=== PATIENT | female | born 1955 | race African-American/Black ===

== ENCOUNTER 2023-10-16 09:00 | Inpatient (IN) | payer OTHER, MEDICAID ==
[~2023-10-16] VITALS: Ht 165.1 cm; Wt 80.4 kg
[2023-10-16 09:59] VITALS: PULSE 92; RESP 16; O2SAT 95
[2023-10-16 11:28] LABS: Basophils # (auto) 0 10 ^3/uL (0-0.2); Basophils % (auto) 0.2 % (0.0-2.0); Eosinophils # (auto) 0 10 ^3/uL (0-0.8); Eosinophils % (auto) 0.3 % (0.0-7.0); Hematocrit 41.8 % (36.0-46.0); Lymphocytes # (auto) 0.7 10 ^3/uL (0.4-5.4); Lymphocytes % (auto) 8.6 % (10.0-50.0); Mean Corpuscular Hemoglobin 33.5 pg (28.0-32.0); Mean Corpuscular Hgb Conc. 33.5 g/dL (32.0-36.0); Monocytes # (auto) 1.3 10 ^3/uL (0-1.3); Monocytes % (auto) 15.3 % (0.0-12.0); Neutrophils # (auto) 6.4 10 ^3/uL (1.6-8.6); Neutrophils % (auto) 75.6 % (37.0-80.0); Nucleated Red Blood Cells % 0.1 %; Red Blood Cells 4.18 10^6/uL (4.0-5.20); Red Cell Distribution Width 13.1 % (11.8-14.3); White Blood Cell 8.5 10^3/uL (4.4-10.8)
[2023-10-16] MEDS: SODIUM CHLORIDE 0.9% 1,000 ML IVB ONE (11:48)
[2023-10-16] MEDS: ONDANSETRON HCL 4 MG/2 ML VIAL IV ONE (11:48)
[2023-10-16] MEDS: MORPHINE SULFATE 4 MG/ML SYR/VIAL IV ONE (11:49)
[2023-10-16 12:00] LABS: Alanine Aminotransferase 10 U/L (7-40); Albumin 3.5 g/dL (3.2-4.8); Alkaline Phosphatase 62 U/L (46-116); Anion Gap 7 (5-15); Aspartate Aminotransferase 21 U/L (13-40); BUN/Creatinine Ratio 19.3 (10.0-20.0); Bilirubin, Total 0.4 mg/dL (0.2-1.0); Blood Urea Nitrogen 35 mg/dL (9-23); Calcium 9.2 mg/dL (8.7-10.4); Carbon Dioxide 27 mmol/L (20-30); Chloride 101 mmol/L (98-107); Glucose 126 mg/dL (74-106); Lipase 47 U/L (12-53); Potassium 3.5 mmol/L (3.5-5.1); Sodium 135 mmol/L (136-145)
[2023-10-16] MEDS ORDERED: NITROGLYCERIN 0.4 MG SL TAB SL PRN (14:15)
[2023-10-16] MEDS ORDERED: DOCUSATE SOD 100 MG CAP PO PRN (14:15)
[2023-10-16] MEDS ORDERED: DEXTROSE (50%) 50ML SYRG IV PRN (14:15)
[2023-10-16] MEDS ORDERED: MORPHINE SULFATE INJ 2 MG/ml SYRG IV PRN (14:15)
[2023-10-16] MEDS: GASTROGRAFIN 120 ML SOL ONE (15:13)
[2023-10-16] MEDS: SODIUM CHLORIDE 0.9% 1,000 ML IV ONE (16:10)
[2023-10-16] MEDS: SODIUM CHLORIDE 0.9% 1,000 ML IV SCH (17:30)
[2023-10-16] MEDS: PIPERACILLIN-TAZOB 3.375GM 100 ML IV ONE (17:30)
[2023-10-16 17:43] LABS: Urine Bacteria None Seen /hpf (None Seen)
[2023-10-16 18:41] LABS: Urine Blood TRACE /uL (Negative); Urine Clarity Turbid (Clear); Urine Color Yellow (Yellow); Urine Protein, UAD TRACE (Negative); Urine Specific Gravity 1.021 (1.001-1.035); Urine Urobilinogen Normal (Negative); Urine WBC 2 /hpf (0 - 5); Urine pH 5.5 (5.0-9.0)
[2023-10-16] MEDS: ACCU-CHEK COMFORT CURVE STRIP VI SCH (19:53)
[2023-10-16] MEDS: ONDANSETRON HCL 4 MG/2 ML VIAL IV PRN (23:55)
[2023-10-16] MEDS: PIPERACILLIN-TAZOB 3.375GM 100 ML IV SCH (23:58)
[2023-10-17] VITALS (9 sets, daily range): BP systolic 110–129; BP diastolic 65–74; PULSE 69–92; RESP 16–18; TEMP 97.2–98.3; O2SAT 91–97
[2023-10-17] MEDS: MORPHINE SULFATE INJ 2 MG/ml SYRG IV PRN (00:06)
[2023-10-17] MEDS ORDERED: METO25TA93 PO (00:31)
[2023-10-17] MEDS ORDERED: GLIP5TAB21 PO (00:31)
[2023-10-17 06:34] LABS: Basophils # (auto) 0 10 ^3/uL (0-0.2); Basophils % (auto) 0.1 % (0.0-2.0); Eosinophils # (auto) 0 10 ^3/uL (0-0.8); Eosinophils % (auto) 0.1 % (0.0-7.0); Lymphocytes # (auto) 0.6 10 ^3/uL (0.4-5.4); Nucleated Red Blood Cells % 0.1 %
[2023-10-17 06:36] LABS: Hematocrit 42.2 % (36.0-46.0); Hemoglobin 14.2 g/dL (12.2-16.2); Lymphocytes % (auto) 7.2 % (10.0-50.0); Mean Corpuscular Hemoglobin 33.1 pg (28.0-32.0); Mean Corpuscular Hgb Conc. 33.5 g/dL (32.0-36.0); Mean Corpuscular Volume 98.7 fL (80.0-100.0); Monocytes # (auto) 1.3 10 ^3/uL (0-1.3); Monocytes % (auto) 16.5 % (0.0-12.0); Neutrophils # (auto) 6.1 10 ^3/uL (1.6-8.6); Neutrophils % (auto) 76.1 % (37.0-80.0); Red Blood Cells 4.28 10^6/uL (4.0-5.20)
[2023-10-17 06:46] LABS: Alkaline Phosphatase 65 U/L (46-116); Anion Gap 8 (5-15); BUN/Creatinine Ratio 24.2 (10.0-20.0); Blood Urea Nitrogen 36 mg/dL (9-23); Calcium 9.4 mg/dL (8.5-10.1); Carbon Dioxide 33 mmol/L (20-30); Chloride 98 mmol/L (98-107); Glucose 134 mg/dL (74-106); Sodium 139 mmol/L (136-145)
[2023-10-17 06:47] LABS: Albumin 3.7 g/dL (3.2-4.8); Aspartate Aminotransferase 18 U/L (13-40); Bilirubin, Total 0.4 mg/dL (0.2-1.0); Total Protein 7.1 g/dL (5.7-8.2)
[2023-10-17 06:49] LABS: Alanine Aminotransferase < 9 U/L (7-40)
[2023-10-17 06:53] LABS: INR 1.06 (0.9-1.15); Partial Thromboplastin Time 26.5 SEC (24.5-34.5); Prothrombin Time 11.2 sec (9.3-11.8)
[2023-10-17] MEDS: PANTOPRAZOLE 40 MG/10 ML VIAL INJ IV SCH (08:51)
[2023-10-17] MEDS: POTASSIUM CHL 20MEQ/100ML 100 ML IV SCH (11:45)
[2023-10-17] MEDS: LORazepam 2MG/ML-1ML VIAL IV ONE (14:30)
[2023-10-17] MEDS ORDERED: DEXTROSE (50%) 50ML SYRG IV PRN (14:30)
[2023-10-17] MEDS: ACCU-CHEK COMFORT CURVE STRIP VI SCH (17:28)
[2023-10-17] MEDS: InsuLIN REG 1unit/0.01ml Soln (100units/ml) SC SCH (17:28)
[2023-10-17] MEDS: METOCLOPRAMIDE HCL 5MG/ml INJ 2ml VIAL IV SCH (21:46)
[2023-10-18] VITALS (9 sets, daily range): BP systolic 111–133; BP diastolic 56–78; PULSE 81–105; RESP 16–20; TEMP 97.3–99; O2SAT 90–100
[2023-10-18 06:30] LABS: Chloride 104 mmol/L (98-107); Potassium 3.7 mmol/L (3.5-5.1); Sodium 140 mmol/L (136-145)
[2023-10-18 06:31] LABS: Anion Gap 5 (5-15); Carbon Dioxide 31 mmol/L (20-30)
[2023-10-18 06:36] LABS: Blood Urea Nitrogen 34 mg/dL (9-23); Glucose 114 mg/dL (74-106)
[2023-10-18 07:21] LABS: Hematocrit 44.5 % (36.0-46.0); Hemoglobin 14.9 g/dL (12.2-16.2); Mean Corpuscular Hemoglobin 33.9 pg (28.0-32.0); Mean Corpuscular Hgb Conc. 33.6 g/dL (32.0-36.0); Red Cell Distribution Width 13.7 % (11.8-14.3); White Blood Cell 8.3 10^3/uL (4.4-10.8)
[2023-10-18 07:32] LABS: Basophils % (manual) 0 (0.0-2.0); Blast Cells 0; Eosinophils % (manual) 0 (0-7); Metamyelocytes % 0; Myelocytes % 0; Promyelocytes % 0; Reactive Lymphocytes 0
[2023-10-18 09:38] LABS: Band Neutrophils % (manual) 3; Lymphocytes % (manual) 34 (10.0-50.0); Monocytes % (manual) 10 (0-12); Platelet Estimate Adequate
[2023-10-19 05:00] VITALS: BP 97/70; PULSE 105; RESP 15; TEMP 97.9; O2SAT 90
[2023-10-19 07:18] LABS: Chloride 104 mmol/L (98-107); Potassium 3.2 mmol/L (3.5-5.1); Sodium 143 mmol/L (136-145)
[2023-10-19 07:19] LABS: Anion Gap 9 (5-15); Calcium 9.3 mg/dL (8.5-10.1); Carbon Dioxide 30 mmol/L (20-30)
[2023-10-19 07:24] LABS: BUN/Creatinine Ratio 24.8 (10.0-20.0); Blood Urea Nitrogen 37 mg/dL (9-23); Glucose 126 mg/dL (74-106)
[2023-10-19 08:00] VITALS: PULSE 91
[2023-10-19 08:10] LABS: Red Cell Distribution Width 13.6 % (11.8-14.3)
[2023-10-19 08:12] LABS: Hematocrit 46.3 % (36.0-46.0); Hemoglobin 15.6 g/dL (12.2-16.2); Mean Corpuscular Hemoglobin 34.5 pg (28.0-32.0); Mean Corpuscular Hgb Conc. 33.7 g/dL (32.0-36.0); Mean Corpuscular Volume 102.5 fL (80.0-100.0); Red Blood Cells 4.51 10^6/uL (4.0-5.20); White Blood Cell 10.8 10^3/uL (4.4-10.8)
[2023-10-19 08:21] LABS: Basophils % (manual) 0 (0.0-2.0); Blast Cells 0; Eosinophils % (manual) 0 (0-7); Metamyelocytes % 0; Myelocytes % 0; Promyelocytes % 0
[2023-10-19 08:35] VITALS: BP 112/65; PULSE 97; RESP 18; TEMP 98.4; O2SAT 97
[2023-10-19 12:17] LABS: Band Neutrophils % (manual) 2; Lymphocytes % (manual) 21 (10.0-50.0); Monocytes % (manual) 12 (0-12); Platelet Estimate Adequate; Reactive Lymphocytes 2
[2023-10-19 13:04] VITALS: BP 124/64; PULSE 72; RESP 18; TEMP 98.4; O2SAT 91
[2023-10-19] MEDS: POTASSIUM CHL 20MEQ/100ML 100 ML IV ONE (15:21)
[2023-10-19] MEDS: SOD CHL 0.9%/ KCL 40MEQ 1,000 ML IV SCH (15:30)
[2023-10-19] MEDS ORDERED: PROPOFOL 10 MG/ML 20 ML IV ONE (16:17)
[2023-10-19] MEDS ORDERED: fentaNYL CITRATE 100 MCG/2 ML VL ONE (16:18)
[2023-10-19] MEDS ORDERED: ePHEDrine SULFATE 50 MG/ML AMP ONE (16:20)
[2023-10-19] MEDS ORDERED: SODIUM CHLORIDE LOCK 10 ML ONE (16:21)
[2023-10-19 16:26] LABS: INR 1.09 (0.9-1.15); Partial Thromboplastin Time 24.8 SEC (24.5-34.5); Prothrombin Time 11.5 sec (9.3-11.8)
[2023-10-19] MEDS: ceFAZolin 2 GM/D5W50ml 50 ML IV ONE (16:28)
[2023-10-19] MEDS ORDERED: ROCURONIUM 10MG/ML 10ML VIAL IV ONE (16:41)
[2023-10-19] MEDS: metroNIDAZOLE 500MG/100ML 100 ML IV ONE (16:48)
[2023-10-19] MEDS ORDERED: LABETALOL HCL 5 MG/ML ML 20ML VIAL IV ONE (17:08)
[2023-10-19] MEDS ORDERED: SUGAMMADEX 200mg/2ml Vial (100MG/ML) IV ONE (18:17)
[2023-10-19 18:25] VITALS: O2SAT 94
[2023-10-19] MEDS: HYDROmorphone HCL 2 MG/ML VL/or syr IV PRN (19:41)
[2023-10-19] MEDS ORDERED: MEPERIDINE HCL (25 MG/ML) 1ML VIAL IV PRN (19:45)
[2023-10-19 20:00] VITALS: BP 129/69; PULSE 102; PULSE 61; PULSE 84; RESP 18; TEMP 97.8; O2SAT 99
[2023-10-20] VITALS (8 sets, daily range): BP systolic 115–135; BP diastolic 61–78; PULSE 88–102; RESP 17–20; TEMP 97.4–98.7; O2SAT 92–100
[2023-10-20 07:27] LABS: Basophils # (auto) 0 10 ^3/uL (0-0.2); Eosinophils # (auto) 0 10 ^3/uL (0-0.8); Lymphocytes # (auto) 0.9 10 ^3/uL (0.4-5.4); Lymphocytes % (auto) 6.5 % (10.0-50.0)
[2023-10-20 07:29] LABS: Hematocrit 46.5 % (36.0-46.0); Hemoglobin 15.5 g/dL (12.2-16.2); Mean Corpuscular Hemoglobin 34.1 pg (28.0-32.0); Mean Corpuscular Hgb Conc. 33.3 g/dL (32.0-36.0); Mean Corpuscular Volume 102.4 fL (80.0-100.0); Monocytes # (auto) 1.5 10 ^3/uL (0-1.3); Monocytes % (auto) 11.1 % (0.0-12.0); Neutrophils # (auto) 10.9 10 ^3/uL (1.6-8.6); Neutrophils % (auto) 82.4 % (37.0-80.0); Red Blood Cells 4.54 10^6/uL (4.0-5.20); Red Cell Distribution Width 13.8 % (11.8-14.3); White Blood Cell 13.3 10^3/uL (4.4-10.8)
[2023-10-20 07:41] LABS: Alanine Aminotransferase 16 U/L (7-40); Albumin 3.1 g/dL (3.2-4.8); Alkaline Phosphatase 50 U/L (46-116); Anion Gap 5 (5-15); Aspartate Aminotransferase 32 U/L (13-40); BUN/Creatinine Ratio 21.6 (10.0-20.0); Blood Urea Nitrogen 38 mg/dL (9-23); Calcium 7.7 mg/dL (8.5-10.1); Carbon Dioxide 29 mmol/L (20-30); Chloride 110 mmol/L (98-107); Glucose 195 mg/dL (74-106); Sodium 144 mmol/L (136-145)
[2023-10-20 07:42] LABS: Bilirubin, Total 0.4 mg/dL (0.2-1.0); Total Protein 6.3 g/dL (5.7-8.2)
[2023-10-20] MEDS ORDERED: TPN PER PHARMACY 0 ML IV SCH (08:30)
[2023-10-20] MEDS: GASTROGRAFIN 120 ML SOL ONE (09:10)
[2023-10-20] MEDS: POTASSIUM CHL 20MEQ/100ML 100 ML IV ONE (09:10)
[2023-10-20] MEDS: HYDROmorphone HCL 2 MG/ML VL/or syr ONE (09:10)
[2023-10-20] MEDS: SUCCINYLCHOLINE CHLORIDE 20 MG/ML 10ML VIAL IV ONE (09:10)
[2023-10-20] MEDS: ONDANSETRON HCL 4 MG/2 ML VIAL IV ONE (09:11)
[2023-10-20 11:17] LABS: Magnesium 2.6 mg/dL (1.6-2.6)
[2023-10-20 11:19] LABS: Phosphorus 5.8 mg/dL (2.4-5.1)
[2023-10-20] MEDS ORDERED: DEXTROSE (50%) 50ML SYRG IV SCH (14:15)
[2023-10-20] MEDS: ACCU-CHEK COMFORT CURVE STRIP VI SCH (17:27)
[2023-10-20] MEDS: InsuLIN REG 1unit/0.01ml Soln (100units/ml) SC SCH (17:29)
[2023-10-20] MEDS: AMINO ACID INFUSION IN D5W 2,000 ML IV NR (20:42)
[2023-10-21] VITALS (8 sets, daily range): BP systolic 113–149; BP diastolic 62–90; PULSE 75–103; RESP 16–20; TEMP 97.3–98.6; O2SAT 91–95
[2023-10-21 07:24] LABS: Basophils # (auto) 0 10 ^3/uL (0-0.2); Basophils % (auto) 0.2 % (0.0-2.0); Eosinophils # (auto) 0 10 ^3/uL (0-0.8); Eosinophils % (auto) 0.2 % (0.0-7.0); Hematocrit 39.8 % (36.0-46.0); Lymphocytes # (auto) 1.4 10 ^3/uL (0.4-5.4); Lymphocytes % (auto) 9.8 % (10.0-50.0); Mean Corpuscular Hemoglobin 33.2 pg (28.0-32.0); Mean Corpuscular Hgb Conc. 32.8 g/dL (32.0-36.0); Mean Corpuscular Volume 101.2 fL (80.0-100.0); Monocytes # (auto) 2.1 10 ^3/uL (0-1.3); Monocytes % (auto) 14.7 % (0.0-12.0); Neutrophils # (auto) 10.7 10 ^3/uL (1.6-8.6); Neutrophils % (auto) 75.1 % (37.0-80.0); Nucleated Red Blood Cells % 0.1 %; Red Blood Cells 3.93 10^6/uL (4.0-5.20); Red Cell Distribution Width 13.6 % (11.8-14.3); White Blood Cell 14.2 10^3/uL (4.4-10.8)
[2023-10-21 07:35] LABS: Alanine Aminotransferase 14 U/L (7-40); Albumin 3.2 g/dL (3.2-4.8); Alkaline Phosphatase 54 U/L (46-116); Anion Gap 6 (5-15); Aspartate Aminotransferase 39 U/L (13-40); BUN/Creatinine Ratio 34.5 (10.0-20.0); Bilirubin, Total 0.3 mg/dL (0.2-1.0); Blood Urea Nitrogen 39 mg/dL (9-23); Calcium 8.1 mg/dL (8.5-10.1); Carbon Dioxide 25 mmol/L (20-30); Chloride 114 mmol/L (98-107); Glucose 129 mg/dL (74-106); Magnesium 2.6 mg/dL (1.6-2.6); Phosphorus 2.1 mg/dL (2.4-5.1); Potassium 4.4 mmol/L (3.5-5.1); Sodium 145 mmol/L (136-145)
[2023-10-21 07:36] LABS: Total Protein 6.3 g/dL (5.7-8.2)
[2023-10-21] MEDS: POTASSIUM PHOSPHATE 26.4 MEQ in SODIUM CHL 0.9% 100 ML IV ONE (08:30)
[2023-10-21 11:51] LABS: INR 1.18 (0.9-1.15); Partial Thromboplastin Time 28.9 SEC (24.5-34.5); Prothrombin Time 12.4 sec (9.3-11.8)
[2023-10-21] MEDS: LIDOCAINE 1% (LOCAL ANESTH.) PF 5ml SDV ID ONE (14:25)
[2023-10-21] MEDS: LACTATED RINGER'S 1,000 ML IV SCH (16:38)
[2023-10-21] MEDS: AMINO ACID INFUSION IN D5W 2,000 ML IV NR (23:15)
[2023-10-21] MEDS: SODIUM CHLOR 0.9% PF (SALINE LOCK) 10ML VIAL/SYR IV SCH (23:18)
[2023-10-22] VITALS (7 sets, daily range): BP systolic 119–140; BP diastolic 65–93; PULSE 89–99; RESP 16–20; TEMP 97.9–98.1; O2SAT 95–100
[2023-10-22] MEDS: SOD CHL 0.45% 1,000 ML IV SCH (15:45)
[2023-10-22 16:55] LABS: Alanine Aminotransferase 15 U/L (7-40); Albumin 3.2 g/dL (3.2-4.8); Alkaline Phosphatase 52 U/L (46-116); Anion Gap 3 (5-15); Aspartate Aminotransferase 36 U/L (13-40); BUN/Creatinine Ratio 24.7 (10.0-20.0); Blood Urea Nitrogen 20 mg/dL (9-23); Calcium 8.4 mg/dL (8.5-10.1); Carbon Dioxide 27 mmol/L (20-30); Chloride 111 mmol/L (98-107); Glucose 186 mg/dL (74-106); Magnesium 2.3 mg/dL (1.6-2.6); Phosphorus 1.7 mg/dL (2.4-5.1); Potassium 4.3 mmol/L (3.5-5.1); Sodium 141 mmol/L (136-145)
[2023-10-22 16:56] LABS: Bilirubin, Total 0.3 mg/dL (0.2-1.0); Total Protein 6.6 g/dL (5.7-8.2)
[2023-10-23] VITALS (7 sets, daily range): BP systolic 124–145; BP diastolic 68–90; PULSE 84–89; RESP 14–18; TEMP 97.7–98.9; O2SAT 94–97
[2023-10-23 06:46] LABS: Alanine Aminotransferase 14 U/L (7-40); Alkaline Phosphatase 47 U/L (46-116); Anion Gap 4 (5-15); BUN/Creatinine Ratio 21.7 (10.0-20.0); Blood Urea Nitrogen 15 mg/dL (9-23); Calcium 8.1 mg/dL (8.5-10.1); Carbon Dioxide 26 mmol/L (20-30); Chloride 108 mmol/L (98-107); Glucose 98 mg/dL (74-106); Potassium 3.6 mmol/L (3.5-5.1); Sodium 138 mmol/L (136-145)
[2023-10-23 06:47] LABS: Aspartate Aminotransferase 25 U/L (13-40); Bilirubin, Total 0.5 mg/dL (0.2-1.0); Phosphorus 1.7 mg/dL (2.4-5.1); Total Protein 6.1 g/dL (5.7-8.2)
[2023-10-23 11:56] LABS: Hematocrit 35.4 % (36.0-46.0); Hemoglobin 11.6 g/dL (12.2-16.2); Mean Corpuscular Hemoglobin 33.4 pg (28.0-32.0); Mean Corpuscular Hgb Conc. 32.8 g/dL (32.0-36.0); Mean Corpuscular Volume 101.6 fL (80.0-100.0); Red Blood Cells 3.49 10^6/uL (4.0-5.20); Red Cell Distribution Width 13.9 % (11.8-14.3)
[2023-10-23 11:57] LABS: Basophils % (manual) 0 (0.0-2.0); Blast Cells 0; Metamyelocytes % 0; Myelocytes % 0; Promyelocytes % 0; Reactive Lymphocytes 0
[2023-10-23 12:22] LABS: Band Neutrophils % (manual) 1; Eosinophils % (manual) 1 (0-7); Lymphocytes % (manual) 34 (10.0-50.0); Monocytes % (manual) 5 (0-12); Platelet Estimate Adequate
[2023-10-23] MEDS: POTASSIUM PHOSPHATE 44 MEQ in D5W 5% 250 ML IV ONE (16:02)
[2023-10-23] MEDS: SOD CHL 0.45% 1,000 ML IV SCH (18:42)
[2023-10-24] VITALS (8 sets, daily range): BP systolic 116–144; BP diastolic 69–91; PULSE 79–94; RESP 16–19; TEMP 97.7–98.8; O2SAT 92–99
[2023-10-24] MEDS: cefTRIAXone 1GM/50ML D5W 50 ML IV SCH (08:25)
[2023-10-24] MEDS: FUROSEMIDE 20 MG TAB PO ONE (14:39)
[2023-10-24] MEDS: ERGOCALCIFEROL 50,000 UNIT(1.25MG) CAP PO SCH (14:40)
[2023-10-24] MEDS: POTASSIUM PHOSPHATE 44 MEQ in D5W 5% 250 ML IV ONE (15:38)
[2023-10-25 05:00] VITALS: BP 125/82; PULSE 77; RESP 18; TEMP 98.1; O2SAT 99
[2023-10-25 06:32] LABS: Anion Gap 6 (5-15); Carbon Dioxide 25 mmol/L (20-30); Chloride 108 mmol/L (98-107); Potassium 3.9 mmol/L (3.5-5.1); Sodium 139 mmol/L (136-145)
[2023-10-25 06:33] LABS: Calcium 8.1 mg/dL (8.5-10.1)
[2023-10-25 06:38] LABS: Glucose 85 mg/dL (74-106)
[2023-10-25 06:39] LABS: BUN/Creatinine Ratio 8.3 (10.0-20.0); Blood Urea Nitrogen < 5 mg/dL (9-23)
[2023-10-25 08:00] VITALS: PULSE 80; RESP 18; O2SAT 94
[2023-10-25 09:00] VITALS: BP 141/79; PULSE 80; RESP 18; TEMP 98.7; O2SAT 94
[2023-10-25 13:00] VITALS: BP 137/74; PULSE 84; RESP 18; TEMP 98.1; O2SAT 94
[2023-10-25 17:00] VITALS: BP 131/77; PULSE 83; RESP 20; TEMP 97.5; O2SAT 96
[2023-10-25 20:00] VITALS: PULSE 90; RESP 16; O2SAT 98
[2023-10-26] VITALS (9 sets, daily range): BP systolic 113–144; BP diastolic 67–83; PULSE 77–90; RESP 16–18; TEMP 97.9–98.7; O2SAT 93–100
[2023-10-26] MEDS: AMOXICILLIN/CLAVUL 875 MG TAB PO SCH (22:23)
[2023-10-27 05:00] VITALS: BP 147/84; PULSE 77; RESP 18; TEMP 98.1; O2SAT 100
[2023-10-27 06:18] LABS: Basophils # (auto) 0.1 10 ^3/uL (0-0.2); Basophils % (auto) 1.3 % (0.0-2.0); Eosinophils # (auto) 0.1 10 ^3/uL (0-0.8); Eosinophils % (auto) 1.1 % (0.0-7.0); Hematocrit 34.2 % (36.0-46.0); Hemoglobin 11.4 g/dL (12.2-16.2); Lymphocytes # (auto) 1.5 10 ^3/uL (0.4-5.4); Lymphocytes % (auto) 20.1 % (10.0-50.0); Mean Corpuscular Hemoglobin 33.4 pg (28.0-32.0); Mean Corpuscular Hgb Conc. 33.4 g/dL (32.0-36.0); Monocytes # (auto) 1.3 10 ^3/uL (0-1.3); Monocytes % (auto) 17.1 % (0.0-12.0); Neutrophils # (auto) 4.6 10 ^3/uL (1.6-8.6); Neutrophils % (auto) 60.4 % (37.0-80.0); Red Blood Cells 3.42 10^6/uL (4.0-5.20); White Blood Cell 7.6 10^3/uL (4.4-10.8)
[2023-10-27] MEDS: MORPHINE SULFATE INJ 2 MG/ml SYRG IV PRN (06:24)
[2023-10-27 06:31] LABS: Chloride 108 mmol/L (98-107); Potassium 3.6 mmol/L (3.5-5.1); Sodium 140 mmol/L (136-145)
[2023-10-27 06:32] LABS: Anion Gap 5 (5-15); Carbon Dioxide 27 mmol/L (20-30)
[2023-10-27 06:33] LABS: Calcium 8.5 mg/dL (8.5-10.1)
[2023-10-27 06:37] LABS: Glucose 86 mg/dL (74-106)
[2023-10-27 06:41] LABS: BUN/Creatinine Ratio 8.3 (10.0-20.0); Blood Urea Nitrogen < 5 mg/dL (9-23)
[2023-10-27 08:00] VITALS: PULSE 80; RESP 18; O2SAT 94
[2023-10-27 20:00] VITALS: PULSE 82; RESP 18; O2SAT 97
[2023-10-27 21:41] VITALS: BP 132/85; PULSE 82; RESP 18; TEMP 98.4; O2SAT 97
[2023-10-28] VITALS (7 sets, daily range): BP systolic 116–150; BP diastolic 59–85; PULSE 75–97; RESP 17–18; TEMP 36.9; O2SAT 97–100
[2023-10-29 05:28] VITALS: BP 132/75; PULSE 82; RESP 18; TEMP 98.9; O2SAT 98
[2023-10-29 08:56] VITALS: BP 136/73; PULSE 75; RESP 19; TEMP 97.9; O2SAT 99
[2023-10-29 13:00] VITALS: BP 124/76; PULSE 78; RESP 18; TEMP 98.9; O2SAT 94
[2023-10-29 14:01] VITALS: BP 123/70; TEMP 36.9
== END 2023-10-29 15:19 | disposition home or self-care (01) | DRG 397 ==
LOC: ER 09:00 → TELE 14:17 → TELE-WESTW 22:28 → WEST WING 10-22 22:40
PROVIDERS: ADMIT Internal Medicine; ATTEND Nurse Practitioner Acute Care
PROC: 0D9670Z Drainage of Stomach with Drainage Device, Via Natural or Artificial Opening (ICD-10-PCS; 2023-10-17)
PROC: 5A1935Z Respiratory Ventilation, Less than 24 Consecutive Hours (ICD-10-PCS; 2023-10-17)
PROC: 0W9G0ZZ Drainage of Peritoneal Cavity, Open Approach (ICD-10-PCS; 2023-10-19)
PROC: 0DTJ0ZZ Resection of Appendix, Open Approach (ICD-10-PCS; principal; 2023-10-19 16:28)
PROC: 02HV33Z Insertion of Infusion Device into Superior Vena Cava, Percutaneous Approach (ICD-10-PCS; 2023-10-21)
PROC: B548ZZA Ultrasonography of Superior Vena Cava, Guidance (ICD-10-PCS; 2023-10-21)
DX: K35.33 Acute appendicitis with perforation, localized peritonitis, and gangrene, with abscess (principal); A02.1 Salmonella sepsis; N17.0 Acute kidney failure with tubular necrosis; K56.609 Unspecified intestinal obstruction, unspecified as to partial versus complete obstruction; K56.50 Intestinal adhesions [bands], unspecified as to partial versus complete obstruction; E87.6 Hypokalemia; E11.22 Type 2 diabetes mellitus with diabetic chronic kidney disease; E11.65 Type 2 diabetes mellitus with hyperglycemia; E86.0 Dehydration; E83.39 Other disorders of phosphorus metabolism; F03.90 Unspecified dementia, unspecified severity, without behavioral disturbance, psychotic disturbance, mood disturbance, and anxiety; N18.9 Chronic kidney disease, unspecified; I12.9 Hypertensive chronic kidney disease with stage 1 through stage 4 chronic kidney disease, or unspecified chronic kidney disease; F14.10 Cocaine abuse, uncomplicated; F10.10 Alcohol abuse, uncomplicated; Y90.9 Presence of alcohol in blood, level not specified
CPT/HCPCS: 36415; 36569; 71045; 74018; 74021; 74022; 74176; 74250; 76775; 76937; 80048; 80053; 81001; 82306; 82962; 83036; 83690; 83735; 83970; 84100; 84478; 85007; 85025; 85027; 85610; 85730; 86850; 86900; 86901; 87070; 87075; 87076; 87077; 87186; 87205; 93005; 96365; 96375; 97110; 97116; 97163; 97530; C9113; G0378; J0330; J1815; J2405; J2543; J2704; J3480; J3490; J7060